=== PATIENT | female | born 1990 | race African-American/Black ===

== ENCOUNTER 2017-08-26 20:46 | Emergency (ER) | payer OTHER ==
[~2017-08-26 20:46] MED LIST: ASPIR-LOW81 M1 PO; COZ50 PO; GLU500 PO; NOR10 PO; TEN50 PO; ZOC20 PO
[2017-08-26 23:20] VITALS: BP 116/71
== END 2017-08-26 23:20 | disposition home or self-care (01) ==
LOC: ED 20:46
DX: S29.011A Strain of muscle and tendon of front wall of thorax, initial encounter (principal); X58.XXXA Exposure to other specified factors, initial encounter; Y93.89 Activity, other specified; Y92.89 Other specified places as the place of occurrence of the external cause; Y99.8 Other external cause status

== ENCOUNTER 2019-05-07 09:00 | Emergency (ER) | payer OTHER ==
[~2019-05-07] VITALS: Ht 170.2 cm; Wt 61.7 kg
[2019-05-07 09:18] VITALS: Ht 170.2 cm; Wt 61.7 kg
[2019-05-07 10:32] VITALS: BP 118/60
== END 2019-05-07 10:32 | disposition home or self-care (01) ==
LOC: ED 09:00
DX: H10.89 Other conjunctivitis (principal); F41.9 Anxiety disorder, unspecified; F32.9 Major depressive disorder, single episode, unspecified